=== PATIENT | male | born 1960 | race Caucasian/White ===

== ENCOUNTER 2018-06-07 15:35 | Emergency (ER) | payer OTHER ==
[~2018-06-07] VITALS: Ht 165.1 cm; Wt 113.4 kg
[2018-06-07 15:43] VITALS: Ht 165.1 cm; Wt 113.4 kg
[2018-06-07 19:04] VITALS: BP 152/96
== END 2018-06-07 19:05 | disposition home or self-care (01) ==
LOC: ED 15:35
DX: S01.511A Laceration without foreign body of lip, initial encounter (principal); S09.93XA Unspecified injury of face, initial encounter; W01.0XXA Fall on same level from slipping, tripping and stumbling without subsequent striking against object, initial encounter; Y93.89 Activity, other specified; Y92.89 Other specified places as the place of occurrence of the external cause; Y99.8 Other external cause status
CPT/HCPCS: 90715; J2001; Q0092

== ENCOUNTER 2018-06-10 12:10 | Emergency (ER) | payer OTHER ==
[~2018-06-10] VITALS: Ht 167.6 cm; Wt 113.4 kg
[2018-06-10 12:18] VITALS: BP 161/112; Ht 167.6 cm; Wt 113.4 kg
== END 2018-06-10 13:06 | disposition home or self-care (01) ==
LOC: ED 12:10
DX: S01.512D Laceration without foreign body of oral cavity, subsequent encounter (principal); W18.39XD Other fall on same level, subsequent encounter